=== PATIENT | female | born 1990 | race African-American/Black ===

== ENCOUNTER 2022-10-19 23:12 | Emergency (ER) | payer MEDICAID ==
[~2022-10-19] VITALS: Ht 167.6 cm; Wt 170.0 kg
[2022-10-19 23:21] VITALS: BP 138/84
== END 2022-10-20 05:44 | disposition left against medical advice (07) ==
LOC: ER 23:53
DX: G89.29 Other chronic pain (principal); R10.9 Unspecified abdominal pain; R44.3 Hallucinations, unspecified; F32.A Depression, unspecified; F41.9 Anxiety disorder, unspecified; G47.30 Sleep apnea, unspecified
CPT/HCPCS: 99283